=== PATIENT | female | born 1960 | race African-American/Black ===

== ENCOUNTER 2016-12-01 20:37 | Emergency (ER) | payer OTHER ==
[2016-12-01 21:37] VITALS: BP 109/64; PULSE 68; TEMP 98.2; BMI 33.9
[2016-12-01] MEDS ORDERED: KETOROLAC TROMETHAMINE 60 MG/2 ML VIAL IM ONE (22:02)
[2016-12-01] MEDS ORDERED: CYCLOBENZAPRINE HCL 10 MG TABLET (FP) PO ONE (22:03)
[2016-12-01] MEDS ORDERED: CYCLOBENZAPRINE HCL 10 MG TABLET (FP) ONE (22:08)
[2016-12-01] MEDS ORDERED: KETOROLAC TROMETHAMINE 60 MG/2 ML VIAL ONE (22:08)
--- NOTE | 2016-12-01 22:08 | PDOC ---
History of Present Illness - General Chief Complaint: Back Pain Stated Complaint: FALL Time Seen by Provider: 12/01/16 21:00 History Source: Patient Exam Limitations: No Limitations - History of Present Illness Initial Comments: 12/01/16 22:03 56y F hx of htn presents with back pain. Pt was sitting down in the nursing station she missed the chair and it rolled away and sh elanded on her behind. the pt states she started having left lower back pain with some tingling running down her left leg to knee. no associated weakness, urinary/bowel incotninence head injury, loc, neck pain or midline back pain. pt has history of sciatica on R side but never on L side. Constitutional - no reported Fever, Chills, HEENT: no reported vision changes, sore throat Respiratory: no reported cough, sob, hemoptysis Cardiac: no reported chest pain, palpitations, light headedness, leg swelling Abd/GI: no reported abd pain, nausea, vomiting, blood per rectum, melena, diarrhea : no reported dysuria, frequency, discharge Musculskelatal - no reported back pain, joint swelling skin - no reported bruising, erythema, rash neurological: no reported headache, numbness, focal weakness, tingling, ataxia, hematologic: no reported anemia, easy bruising, easy bleeding GENERAL: The patient is awake, alert, and fully oriented, Nontoxic - in no acute distress. HEAD: Normocephalic, atraumatic. EYES: extraocular movements intact, sclera anicteric, conjunctiva clear. ENT: Normal voice, Moist mucous membranes. NECK: Normal range of motion, supple BACK: no midline tenderness in cervical/thoraicic/lumbar region, mild tenderness of left lumbar paraspinal region ABDOMEN: Soft, nontender, EXTREMITIES: Normal range of motion, no edema. No clubbing or cyanosis. No cords, erythema, or tenderness. NEUROLOGICAL: No facial assymetry, Normal speech, moving all 4 extremities spontaneously and symmetrically PSYCH: Normal mood, normal affect. SKIN: Warm, Dry, normal turgor, Past History - Past Medical History Allergies/Adverse Reactions: Allergies Allergy/AdvReac Type Severity Reaction Status Date / Time No Known Allergies Allergy Verified 12/01/16 21:20 Home Medications: Ambulatory Orders Losartan/Hydrochlorothiazide [Hyzaar 50-12.5 Tablet] 1 tab PO DAILY 08/16/12 Albuterol Sulfate Inhaler - [Ventolin HFA Inhaler -] 1 - 2 inh PO QID #1 inhaler 05/16/13 Ibuprofen [Motrin] 800 mg PO TID #20 tablet 11/20/13 Methocarbamol [Robaxin -] 500 mg PO TID #21 tablet 11/20/13 Cyclobenzaprine HCl [Flexeril 10 mg] 10 mg PO BID PRN #14 tablet 12/01/16 HTN: Yes - Immunization History Immunization Up to Date: Yes - Psycho/Social/Smoking Cessation Hx Anxiety: No Suicidal Ideation: No Smoking Status: No Smoking History: Never smoked Have you smoked in the past 12 months: No Number of Cigarettes Smoked Daily: 0 Cigars Per Day: 0 Information on smoking cessation initiated: No Hx Alcohol Use: No Drug/Substance Use Hx: No *Physical Exam - Vital Signs Last Vital Signs Temp Pulse Resp BP Pulse Ox 98.2 F 68 14 109/64 95 12/01/16 21:21 12/01/16 21:21 12/01/16 21:21 12/01/16 21:21 12/01/16 21:21 Medical Decision Making - Medical Decision Making 12/01/16 22:07 suspect possible sciatica will give toradol, flexeril will dc with pmd fu return precautions were disucssed I discussed the physical exam findings, ancillary test results and final diagnoses with the patient. I answered all of the patient's questions. The patient was satisfied with the care received and felt comfortable with the discharge plan and treatment plan. The patient will call their primary care physician within 24 hours to arrange follow-up and will return to the Emergency Department with any new, persistent or worsening symptoms. *DC/Admit/Observation/Transfer Diagnosis at time of Disposition: Sciatica of left side - Discharge Dispostion Disposition: HOME Condition at time of disposition: Improved Admit: No - Prescriptions Prescriptions: Cyclobenzaprine HCl [Flexeril 10 mg] 10 mg PO BID PRN #14 tablet PRN Reason: Back Pain - Referrals Referrals: Taylor Crum MD [Staff Physician] - - Patient Instructions Printed Discharge Instructions: DI for Low Back Pain Additional Instructions: Return to the emergency department immediately with ANY new, persistent or worsening symptoms including numbness, tingling, weakness, fevers or any other concerns. Take ibuprofen (400mg)/tylenol(650mg) every 6 hours for 2 days. Take the flexeril as prescribed. Apply heat to your sore muscles. You MUST call and follow up with your doctor in 3-4 days for further evaluation of your symptoms. Your emergency department visit is not complete without a followup with your doctor for reevaluation.. Results were discussed with you. Please make sure your doctor reviews the results of your emergency evaluation. Print Language: TRINIDADIAN - Post Discharge Activity Work/School Note: Back to Work
== END 2016-12-01 22:24 | disposition home or self-care (01) ==
LOC: JER 20:37
PROC: 3E0233Z Introduction of Anti-inflammatory into Muscle, Percutaneous Approach (ICD-10-PCS; principal; 2016-12-01)
DX: M54.32 Sciatica, left side (principal); I10 Essential (primary) hypertension; W07.XXXA Fall from chair, initial encounter; Y93.89 Activity, other specified; Y92.238 Other place in hospital as the place of occurrence of the external cause; Y99.0 Civilian activity done for income or pay
CPT/HCPCS: 99281-25

== ENCOUNTER 2020-01-08 07:33 | Day surgery (SDC) | payer OTHER ==
[2020-01-07 10:29] VITALS: BMI 30.8
[2020-01-08] MEDS ORDERED: ceFAZolin SODIUM 1 GM VIAL ONE (08:17)
[2020-01-08] MEDS ORDERED: KETOROLAC TROMETHAMINE 30 MG/1 ML VIAL ONE (08:17)
[2020-01-08] MEDS ORDERED: SODIUM CHLORIDE 0.9% P/F 10 ML VIAL IJ ONE (08:17)
[2020-01-08] MEDS ORDERED: PROPOFOL 20 ML ONE (08:17)
[2020-01-08] MEDS ORDERED: DEXAMETHASONE SOD PHOSPHATE 4 MG/1 ML VIAL ONE (08:17)
[2020-01-08] MEDS ORDERED: MIDAZOLAM HCL 2 MG/2 ML SINGLE DOSE VIAL ONE (08:17)
[2020-01-08] MEDS ORDERED: EPHEDRINE SULFATE/0.9% NACL/PF 50 MG/10 ML SYRINGE NR ONE (08:55)
[2020-01-08] MEDS ORDERED: oxyCODONE HCL 5 MG TABLET PO PRN ×2 (09:49)
[2020-01-08] MEDS ORDERED: ONDANSETRON 4 MG/2 ML VIAL IVPUSH PRN (09:49)
[2020-01-08] MEDS ORDERED: LACTATED RINGERS SOLUTION 1,000 ML IV SCH (10:00)
[2020-01-08] MEDS ORDERED: ceFAZolin 2 GRAM PREMIX BAG IVPB ONE (10:06)
[2020-01-08] MEDS ORDERED: BUPIVACAINE HCL/PF 0.5% (5MG/ML) 10 ML VIAL NR ONE (10:37)
--- NOTE | 2020-01-08 10:56 | HP ---
Satellite [facility] - Chief Complaint Chief Complaint: right knee pain - Past Medical History Allergies/Adverse Reactions: Allergies Allergy/AdvReac Type Severity Reaction Status Date / Time No Known Allergies Allergy Verified 01/08/20 07:59 - Current Medications Current Medications: Home Medications Medication Instructions Recorded Losartan/Hydrochlorothiazide 1 tab PO DAILY 08/16/12 [Hyzaar 50-12.5 Tablet] Albuterol Sulfate Inhaler - 1 - 2 inh PO QID #1 inhaler 05/16/13 [Ventolin HFA Inhaler -] Hydrocodone/Acetaminophen 1 each PO Q6H #12 tablet MDD 4 01/08/20 [Hydrocodone-Acetamin 5-325 mg] Satellite Physical Exam - Physical Examination Vital Signs: Vital Signs Period Temp Pulse Resp BP Sys/Rodríguez Pulse Ox Last 24 Hr 97.8 F 70 18 135/87 100 General Appearance: Well Nourished, Well Developed, Alert & Oriented x3 ENT: Clear Lung: Normal air movement Extremities: Other (right knee- + Swelling, + ttp, decr rom, + mcmurrays, nvi) Neurological: Intact, Alert, Oriented Satellite Impression/Plan - Impression/Plan Impression: right knee internal derangement Operative Procedure: right knee arthroscopy Date to be Performed: 01/08/20
--- NOTE | 2020-01-08 11:10 | OP ---
Operative Note - Note: Operative Date: 01/08/20 Pre-Operative Diagnosis: right knee medail and lateral meniscus tears, OA Operation: right knee arthroscopy, partial medial and lateral meniscectomy, debridement chondroplasty, removal of loose body Post-Operative Diagnosis: Same as Pre-op Surgeon: Amor Navarro Anesthesiologist/DIP FILLER: Kecia Kim Anesthesia: General, Local Specimens Removed: bone, shavings Estimated Blood Loss (mls): 0 Blood Volume Replaced (mls): 0 Fluid Volume Replaced (mls): 700 Operative Report Dictated: Yes
[2020-01-08 13:40] VITALS: BP 143/90; PULSE 50; TEMP 97.6
--- NOTE | 2020-01-10 18:09 | PATH ---
Surgical Pathology Report Patient Name: HORTENCIA DOBSON [facility]. Rec. #: [id number] /Age/Gender: 1960 (Age: 59) / F Account: [id number] Location: [facility] SURGICAL Taken: 01/08/2020 Received: 01/08/2020 Reported: 01/10/2020 Physicians: Amor Navarro M.D. Specimen(s) Received RIGHT KNEE SHAVINGS Clinical History Right knee internal derangement Final Diagnosis RIGHT KNEE SHAVINGS WITH LOOSE BODIES: SYNOVIAL TISSUE WITH HYPERPLASIA, REACTIVE CHANGE, FOCAL CHRONIC INFLAMMATION, AND FIBROSIS. SEPARATE FRAGMENTS OF CARTILAGE IS ALSO PRESENT. Electronically Signed Deedee Hughes M.D. Gross Description Received in formalin labeled "right knee shavings with loose bodies," is a 3.5 x 3.5 x 0.4 cm aggregate of jason-yellow soft tissue fragments. [employer] portions are submitted in one cassette. REMBERTO/01/08/2020 terrance/01/08/2020
--- NOTE | 2020-01-14 10:47 | OP ---
DATE OF OPERATION: 01/08/2020 PREOPERATIVE DIAGNOSIS: Right knee pain, medial and lateral meniscus tear and osteoarthritis. POSTOPERATIVE DIAGNOSIS: Right knee pain, medial and lateral meniscus tear and osteoarthritis, loose body. PROCEDURE: Right knee arthroscopy, partial medial and lateral meniscectomy, debridement chondroplasty and removal of loose body. SURGEON: Amor Navarro MD ANESTHESIOLOGIST: Kecia Kim MD ANESTHESIA: LMA plus local injection of 20 mL 0.5% Marcaine. DRAINS: None. COMPLICATIONS: None. BLOOD LOSS: None. BLOOD GIVEN: None. FLUID REPLACEMENT: Plasma-Lyte 700 mL. SPECIMEN: Arthroscopic shavings, loose body, bone and cartilage. INDICATIONS: This patient is a 59-year-old female with a preoperative diagnosis of recurrent right knee pain, medial and lateral meniscus tears and osteoarthritis. After understanding the potential risks, complications, alternatives and benefits of surgery versus nonsurgical treatment the patient elected to undergo this procedure. DESCRIPTION OF PROCEDURE: Patient was brought to the operating room, peripheral IV placed and IV sedation given. LMA anesthesia was induced. Ample Webril was placed around the right thigh. The patient was placed into C-clamp leg perez with ample padding throughout. The right lower extremity was prepped and draped in sterile fashion, elevated, exsanguinated with an Esmarch bandage and tourniquet inflated to 275 mmHg. A superior medial outflow portal was established. Lateral portal was established. A diagnostic arthroscopy was performed. Under direct vision using a spinal needle a medial portal was established. It was immediately apparent that patient had a medial meniscus tear. It was complex and quite large in the posterior horn and body of the medial meniscus. This was debrided with the combination of the straight basket forceps, right biter and curved shave. The patient did have grade 2/grade 3 osteoarthritis of the medial compartment. A gentle debridement chondroplasty was performed here as well. Photographs were taken before and after. The entire area was copiously irrigated and washed out. Next, attention was turned to the intercondylar notch. It looked good. There was excessive ligamentum mucosum and synovitis which was removed, but otherwise the ACL looked good. It was probed and had the appropriate tension. Patient had a large osteocartilaginous loose body in the intercondylar notch. This was removed with the shaver and the grasper. Next, the lateral compartment was directly visualized. There was a small fraying of the body and posterior horn of the lateral meniscus. This was debrided with a curved shaver. The lateral compartment looked good with no significant osteoarthritis. Next, our attention was turned to the patellofemoral joint. The patient definitely had arthritis, wide areas of grade 3/grade 4 osteoarthritis of the undersurface of the patella and the femoral trochlea. This was debrided with curved shaver. Widespread debridement chondroplasty was performed with a shaver, but unfortunately the patient likely will require additional treatment including injections and possibly knee replacement. The area was copiously irrigated and washed out. All instrumentation, excess saline and debris were removed. The arthroscopy portals were closed with 3-0 nylon sutures. Twenty mL 0.5% Marcaine were introduced into the joint. The area was then washed and dried, covered with Xeroform gauze, 4 x 4 gauze, Webril and an Leo bandage. The tourniquet was taken down after total tourniquet time of 20 minutes. There were no complications during the case. The patient tolerated the procedure quite well and was brought to the ambulatory recovery room in stable condition. Memo [id number]
== END 2020-01-08 14:00 | disposition home or self-care (01) ==
LOC: JASU-SURG 07:33
PROVIDERS: ATTEND Orthopaedic Surgery
PROC: 0SBC4ZZ Excision of Right Knee Joint, Percutaneous Endoscopic Approach (ICD-10-PCS; 2020-01-08)
PROC: 0SCC4ZZ Extirpation of Matter from Right Knee Joint, Percutaneous Endoscopic Approach (ICD-10-PCS; 2020-01-08)
PROC: 0SBC4ZZ Excision of Right Knee Joint, Percutaneous Endoscopic Approach (ICD-10-PCS; principal; 2020-01-08 09:30)
DX: S83.241A Other tear of medial meniscus, current injury, right knee, initial encounter (principal); S83.281A Other tear of lateral meniscus, current injury, right knee, initial encounter; M17.11 Unilateral primary osteoarthritis, right knee; M23.41 Loose body in knee, right knee; Y93.9 Activity, unspecified; Y92.9 Unspecified place or not applicable
CPT/HCPCS: 29880; G0289; 88304-TC; 94760